=== PATIENT | male | born 1955 | race Hispanic/Latino ===

== ENCOUNTER 2020-04-04 10:58 | Emergency (ER) | payer BC, OTHER ==
[2020-04-04] MEDS ORDERED: ONDANSETRON HCL 4 MG/2 ML VIAL ONE (11:17)
[2020-04-04] MEDS ORDERED: SODIUM CHLORIDE 0.9% 1000ML 1,000 ML IV ONE (11:17)
[2020-04-04 11:20] LABS: BASOPHILS % (AUTO) 0.3 % (0.0-5.0); EOSINOPHILS % (AUTO) 2.6 % (0.0-8.0); HEMATOCRIT 44.9 % (42-54); LYMPHOCYTES % (AUTO) 36.6 % (21.0-51.0); MEAN CORPUSCULAR HEMOGLOBIN 30.8 pg (27.0-33.0); MEAN CORPUSCULAR HGB CONC 33.6 g/dL (32.0-36.0); MEAN CORPUSCULAR VOLUME 91.4 fL (79-99); MONOCYTES % (AUTO) 7.6 % (3.0-13.0); NEUTROPHILS % (AUTO) 52.7 % (40.0-77.0); PLATELET COUNT (AUTO) 250 K/uL (130-400); RED BLOOD CELL COUNT(AUTO) 4.91 MIL/uL (4.50-6.20); RED CELL DISTRIBUTION WIDTH 13.6 % (11.0-15.5); WHITE BLOOD COUNT (AUTO) 9.6 K/uL (4.8-10.8)
[2020-04-04 11:37] LABS: CREATININE 0.9 mg/dL (0.5-1.5); POTASSIUM 4.4 mmol/L (3.5-5.1)
[2020-04-04 11:41] LABS: ALBUMIN 4.3 g/dL (3.5-5.0); BILIRUBIN,TOTAL 0.9 mg/dL (0.2-1.0); TOTAL PROTEIN, SERUM 8.8 g/dL (6.0-8.3)
[2020-04-04 11:57] LABS: INR 0.92 (0.85-1.15); PARTIAL THROMBOPLASTIN TIME 28.5 SEC (26.3-35.5)
== END 2020-04-04 15:19 | disposition home or self-care (01) ==
LOC: EDH 10:58
DX: K52.9 Noninfective gastroenteritis and colitis, unspecified (principal); K59.00 Constipation, unspecified
CPT/HCPCS: 36415; 74021; 74176; 80053; 82550; 83690; 84484; 85025; 85610; 85730; 93005; 96361; 96374; 99285; J2405; J7030